=== PATIENT | female | born 1965 | race Caucasian/White ===

== ENCOUNTER → 2016-08-23 | Outpatient (CLI) | payer BC ==
[~2016-08-23] MED LIST: DIPH25TA24 PO; FLUT0.0529; MULT-506 PO; PARO1TAB27 PO
[2016-08-23 11:04] LABS: ESTIMATED AVERAGE GLUCOSE 126 mg/dl; HA1C FLAG Normal (Normal)
[2016-08-23 11:22] LABS: CHOLESTEROL/HDL RATIO 4.7
== END | disposition home or self-care (01) ==
LOC: C.LAB1850 09:54
PROVIDERS: ATTEND Internal Medicine
DX: Z11.59 Encounter for screening for other viral diseases (principal); E78.5 Hyperlipidemia, unspecified

== ENCOUNTER → 2017-02-27 | Outpatient (CLI) | payer BC ==
[2017-02-27 12:35] LABS: CHOLESTEROL/HDL RATIO 3.8
[2017-02-27 12:52] LABS: ESTIMATED AVERAGE GLUCOSE 126 mg/dl; HA1C FLAG Normal (Normal)
== END | disposition home or self-care (01) ==
LOC: C.LAB1850 11:02
PROVIDERS: ATTEND Physician Assistant Medical
DX: R73.01 Impaired fasting glucose (principal)

== ENCOUNTER 2018-01-21 18:27 | Emergency (ER) | payer BC ==
[~2018-01-21] VITALS: Ht 157.5 cm; Wt 54.5 kg
[2018-01-21 18:31] VITALS: TEMP 36.7; Ht 157.5 cm; Wt 54.5 kg
[2018-01-21] MEDS ORDERED: ONDANSETRON INJ 2 MG/ML 2 ML VIAL IV STA (18:36)
[2018-01-21] MEDS ORDERED: METHYLPREDNISOLONE 125 MG VIAL IV STA (18:36)
[2018-01-21] MEDS ORDERED: DiphenhydrAMINE HCL 50 MG/ML VIAL IV STA (18:36)
[2018-01-21] MEDS ORDERED: RANITIDINE HCL 50 MG/100 ML D5W IV STA (18:36)
[2018-01-21] MEDS ORDERED: EPINEPHRINE ADULT AUTO-INJECT 0.3 MG SYR IM STA (19:23)
--- NOTE | 2018-01-21 19:33 | EMERGENCY ROOM VISIT NOTE ---
History Report prepared by Yrn: Caprice Hanks Under the Supervision of: Dr. Aye Santiago M.D. First contact with patient: 18:34 Chief Complaint: ALLERGIC REACTION Stated Complaint: BEE STINGS- ALLERGIC REACTION History of Present Illness The patient is a 52 year old female who presents to the Emergency Room with complaints of an episode of an allergic reaction starting prior to arrival. The patient states that she was doing some trimming when she was stung 7 times by bees. She notes that she is unsure of they were wasps. She states that they stung her on her face, neck, and chest. She reports that she immediately went and got in the shower. She states that right when she got out she felt lightheaded and her tongue felt "funny." She states that she then started to shake and called her to tell him she thought she was having an allergic reaction. She states that at this time she took one Benadryl. The patient complains of her head feeling "funky" and nausea. The patient denies trouble breathing, trouble swallowing, and vomiting. The patient notes that she has been stung by a bee before, but never this many times at once. She notes that she did eat today. Source of History: patient Onset: prior to arrival Position: neck, chest, other (face) Quality: other (allergic reaction) Timing: other (episode) Associated Symptoms: + nausea, No vomiting Note: The patient complains of lightheadedness, her tongue feeling "funny," and her head feeling "funky." The patient denies trouble breathing and trouble swallowing. Review of Systems See HPI for pertinent positives & negatives. A total of 10 systems reviewed and were otherwise negative. Past Medical & Surgical Medical Problems: (1) Borderline diabetes (2) Hemorrhoids (3) History of cervical disc displacement (4) Hyperlipidemia Family History FHx: cancer FHx: heart disease Social History Smoking Status: Never Smoker Alcohol Use: occasionally Marital Status: Housing Status: lives with significant other Occupation Status: employed Current/Historical Medications Scheduled Multivitamin (Multivitamin), 1 TAB PO DAILY Scheduled PRN Diphenhydramine Hcl (Benadryl), 25 MG PO Q6 PRN for as directed Miscellaneous Medications Fluticasone Propionate (Nasal) (Flonase) Paroxetine (Paxil), 10 MG PO Allergies Coded Allergies: Codeine (Unverified Adverse Reaction, Intermediate, SEVERE N/V,DIARRHEA, ) Penicillins (Unverified Adverse Reaction, Mild, N/V, 08/18/13) Physical Exam Vital Signs Date Time Temp Pulse Resp B/P (MAP) Pulse Ox O2 Delivery O2 Flow Rate FiO2 01/21/18 19:51 58 17 135/84 96 01/21/18 18:59 65 13 131/77 99 Room Air 01/21/18 18:46 73 01/21/18 18:43 98 Room Air 01/21/18 18:31 36.7 70 18 131/83 99 Room Air Physical Exam Vital signs reviewed. General: Well-appearing, in no significant distress. HEENT: No scleral icterus, PERRLA, neck supple. Atraumatic. Posterior oropharynx is clear. No significant swelling appreciated. Cardiovascular: Regular rate and rhythm, no extra sounds. Pulmonary: Clear to auscultation bilaterally, normal work of breathing. Abdomen: Soft, nontender, nondistended, positive bowel sounds. Musculoskeletal: Atraumatic, no peripheral edema. Neurologic: Patient awake alert and oriented x 3. Skin: Warm, dry. Multiple erythematous sting crisostomo to the face, upper chest, and behind the left ear. Medical Decision & Procedures Medications Administered Medications (Trade) Dose Ordered Sig/Rufino Route Start Time Stop Time Status Last Admin Dose Admin Diphenhydramine HCl (Benadryl Inj) 25 mg NOW STAT IV 01/21/18 18:36 01/21/18 18:38 DC 01/21/18 18:51 25 MG Methylprednisolone Sodium Succinate (Solu-Medrol IV) 125 mg NOW STAT IV 01/21/18 18:36 01/21/18 18:38 DC 01/21/18 18:51 125 MG Ranitidine HCl (zANTac IV) 50 mg NOW STAT IV 01/21/18 18:36 01/21/18 18:38 DC 01/21/18 18:51 50 MG Ondansetron HCl (Zofran Inj) 4 mg NOW STAT IV 01/21/18 18:36 01/21/18 18:38 DC 01/21/18 18:51 4 MG Epinephrine (Epipen) 0.3 mg NOW STAT IM 01/21/18 19:23 01/21/18 19:24 DC 01/21/18 19:39 0.3 MG ED Course 1834: Past medical records reviewed. The patient was evaluated in room C3. A complete history and physical examination was performed. 1931: Upon reevaluation, the patient appeared to have improvement of her symptoms. I discussed findings with her. She verbalized agreement of the treatment plan. The patient was discharged home. Medical Decision Differential diagnosis: Etiologies such as allergic reaction, anaphylaxis, urticaria, David-John syndrome, toxic epidermal necrolysis, erythema multiforme, cellulitis, as well as others were entertained. This patient was evaluated and appeared to be in no significant distress. IV access was obtained and patient was placed on the almond blancher. She was given an additional 25 mg of IV Benadryl, 50 mg of IV Zantac and 125 mg of IV Solu-Medrol. Patient was observed approximately an hour on the almond blancher without any incident. She was educated on the EpiPen and discharged with 1 in hand. Patient will continue Benadryl as needed for allergic symptoms. She is a borderline diabetic therefore no oral steroids were given for outpatient care. She will follow-up with her PCP if symptoms persist return to the ED immediately for worsening of symptoms or any medical concerns. Medication Reconcilliation Current Medication List: was personally reviewed by me Blood Pressure Screening Patient's blood pressure: Normal blood pressure Blood pressure disposition: Did not require urgent referral Impression Primary Impression: Allergic reaction to bee sting Scribe Attestation The scribe's documentation has been prepared under my direction and personally reviewed by me in its entirety. I confirm that the note above accurately reflects all work, treatment, procedures, and medical decision making performed by me. Departure Information Dispostion Home / Self-Care Referrals Abdulaziz Song M.D. (PCP) Forms HOME CARE DOCUMENTATION FORM, IMPORTANT VISIT INFORMATION Patient Instructions My [facility] Additional Instructions Diagnosis: Allergic reaction to bee sting Benadryl 25-50 mg every 6 hours as needed for itching or allergic symptoms. EpiPen as directed for severe allergic reaction. If the EpiPen is administered, return to the emergency department immediately. Return to the emergency department for worsening of symptoms or any medical concerns.
[2018-01-21 19:51] VITALS: BP 135/84; PULSE 58; O2SAT 96
== END 2018-01-21 19:50 | disposition home or self-care (01) ==
LOC: C.EDB 18:28 → C.EDC 19:50
DX: T63.444A Toxic effect of venom of bees, undetermined, initial encounter (principal); R11.0 Nausea; W57.XXXA Bitten or stung by nonvenomous insect and other nonvenomous arthropods, initial encounter; Z88.0 Allergy status to penicillin; Z88.6 Allergy status to analgesic agent; E78.5 Hyperlipidemia, unspecified